=== PATIENT | female | born 2000 ===

== ENCOUNTER 2020-06-24 19:11 | Emergency (ER) | payer MEDICAID ==
[~2020-06-24] VITALS: Ht 157.5 cm; Wt 58.3 kg
[2020-06-24 19:20] VITALS: BP 115/78
--- NOTE | 2020-06-24 19:43 | NUR ---
VB SINCE LAST NIGHT, "ITS A LITTLE MORE THEN SPOTTING", FIRST , HAS NOT BEEN SEEN YET FOR BY PCP. SMALL CLOT THIS AM. LAST MSP 04/12/21, 10 WEEKS ALONG. ACHES IN BELLY AND LEFT LEG ACHE SINCE TODAY. NO PAIN WITH VOIDING. SO AT BEDSIDE. Addendum: 06/24/20 at 2011 by URI VB SINCE LAST NIGHT, "ITS A LITTLE MORE THEN SPOTTING", FIRST , HAS NOT BEEN SEEN YET FOR BY PCP. SMALL CLOT THIS AM. LAST MSP 04/12/20, 10 WEEKS ALONG. ACHES IN BELLY AND LEFT LEG ACHE SINCE TODAY. NO PAIN WITH VOIDING. SO AT BEDSIDE.
--- NOTE | 2020-06-24 20:10 | NUR ---
PT TO IMAGING
[2020-06-24 20:44] LABS: BASOPHILS % (AUTO) 1 % (0-1); EOSINOPHILS % (AUTO) 1 % (1-7); LYMPHOCYTES % (AUTO) 34 % (22-44); MEAN CORPUSCULAR HEMOGLOBIN 27.1 pg (27.0-34.8); MEAN CORPUSCULAR HGB CONC 33.5 g/dL (32.4-35.8); MEAN PLATELET VOLUME 7.9 fL (7.4-10.4); MONOCYTES % (AUTO) 9 % (2-9); NEUTROPHILS % (AUTO) 55 % (42-75); PLATELET COUNT 258 x10^3/uL (130-400); RED BLOOD COUNT 4.79 x10^6/uL (3.82-5.3); RED CELL DISTRIBUTION WIDTH 15.4 % (9.6-15.2)
[2020-06-24 20:47] LABS: MD NO
== END 2020-06-24 21:45 | disposition home or self-care (01) ==
LOC: ED 21:02
DX: O46.91 Antepartum hemorrhage, unspecified, first trimester (principal); Z3A.01 Less than 8 weeks gestation of pregnancy
CPT/HCPCS: 36415; 76801; 84702; 85025; 86901; 99284

== ENCOUNTER 2020-12-11 20:48 | Emergency (ER) | payer MEDICAID ==
[~2020-12-11] VITALS: Ht 157.5 cm; Wt 72.2 kg
[2020-12-11] MEDS ORDERED: SODIUM CHLORIDE FLUSH 10ML SYR IVF ONE (21:30)
--- NOTE | 2020-12-11 21:47 | NUR ---
PT PRESENTS WITH C/O PAIN IN BETWEEN SHOULDER BLADES X3-4 DAYS, 32 WEEKS . PIV PLACED, LABS DRAWN. CALL TO L&D FOR FHT.
[2020-12-11 21:53] LABS: BASOPHILS % (AUTO) 1 % (0-1); EOSINOPHILS % (AUTO) 1 % (1-7); LYMPHOCYTES % (AUTO) 24 % (22-44); MEAN CORPUSCULAR HEMOGLOBIN 21.2 pg (27.0-34.8); MEAN CORPUSCULAR HGB CONC 31.6 g/dL (32.4-35.8); MEAN PLATELET VOLUME 8.1 fL (7.4-10.4); MONOCYTES % (AUTO) 8 % (2-9); NEUTROPHILS % (AUTO) 67 % (42-75); PLATELET COUNT 267 x10^3/uL (130-400); RED BLOOD COUNT 4.71 x10^6/uL (3.82-5.3)
--- NOTE | 2020-12-11 21:58 | NUR ---
L&D RN AT BEDSIDE FOR FHT.
[2020-12-11 22:00] LABS: ALBUMIN 2.2 g/dL (3.4-5.0); ANION GAP 8 mmol/L (5-15); CALCIUM 9.5 mg/dL (8.5-10.1); CHLORIDE 112 mmol/L (98-107)
[2020-12-11 22:04] LABS: TROPONIN I < 0.015 ng/mL (0.000-0.045)
[2020-12-11 22:09] LABS: ANISOCYTOSIS 2+; MICROCYTOSIS 2+
[2020-12-11 22:10] LABS: <PLATELET ESTIMATE> ADEQUATE; LARGE PLATELETS 1+; OVALOCYTES 1+; POLYCHROMASIA 1+
[2020-12-11 22:38] VITALS: BP 145/85
== END 2020-12-11 22:48 | disposition home or self-care (01) ==
LOC: ED 21:46
DX: O26.893 Other specified pregnancy related conditions, third trimester (principal); K21.9 Gastro-esophageal reflux disease without esophagitis; R07.2 Precordial pain; R94.31 Abnormal electrocardiogram [ECG] [EKG]; Z3A.29 29 weeks gestation of pregnancy
CPT/HCPCS: 36415; 71045; 80048; 82040; 84484; 85025; 85379; 93005; 99285

== ENCOUNTER 2020-12-16 17:38 | Inpatient (IN) | payer MEDICAID ==
[~2020-12-16] VITALS: Ht 157.5 cm; Wt 72.2 kg
[2020-12-16] MEDS ORDERED: KETOROLAC 30 MG/1 ML ONE (17:41)
[2020-12-16] MEDS ORDERED: DEXAMETHASONE 4 MG/ML, 1ML ONE (17:41)
[2020-12-16] MEDS ORDERED: FENTANYL PF 100 MCG/2ML ONE (17:41)
[2020-12-16] MEDS ORDERED: SODIUM CHLORIDE 0.9% PF 10ML ONE (17:41)
[2020-12-16] MEDS ORDERED: ONDANSETRON 2MG/ML, 2ML ONE (17:41)
[2020-12-16] MEDS ORDERED: CEFAZOLIN 1,000 MG ONE (17:41)
[2020-12-16] MEDS ORDERED: MIDAZOLAM 1 MG/ML, 2ML ONE (17:58)
[2020-12-16] MEDS ORDERED: LACTATED RINGERS 1,000 ML IVBOLUS ONE (18:30)
[2020-12-16] MEDS ORDERED: HYDROmorphone 2 MG/ML, 1ML ONE (18:38)
[2020-12-16] MEDS: HYDROmorphone 2 MG/ML, 1ML IVPush PRN ×2 (18:40→18:48)
[2020-12-16 18:50] LABS: BASOPHILS % (AUTO) 0 % (0-1); EOSINOPHILS % (AUTO) 0 % (1-7); LYMPHOCYTES % (AUTO) 11 % (22-44); MEAN CORPUSCULAR HEMOGLOBIN 21.1 pg (27.0-34.8); MEAN CORPUSCULAR HGB CONC 30.9 g/dL (32.4-35.8); MEAN PLATELET VOLUME 8.5 fL (7.4-10.4); MONOCYTES % (AUTO) 5 % (2-9); NEUTROPHILS % (AUTO) 84 % (42-75); PLATELET COUNT 311 x10^3/uL (130-400); RED CELL DISTRIBUTION WIDTH 20.2 % (9.6-15.2)
[2020-12-16] MEDS ORDERED: MAGNESIUM SULF. PMX 20GM/500ML 500 ML IV ONE (18:52)
[2020-12-16 18:54] LABS: MICROSCOPIC INDICATED
[2020-12-16 18:59] LABS: AMPHETAMINE SCREEN, URINE Negative (Negative); BARBITURATE SCREEN, URINE Negative (Negative); BENZODIAZEPINE SCREEN, URINE Negative (Negative); CANNABINOID SCREEN, URINE Negative (Negative); COCAINE SCREEN, URINE Negative (Negative); METHADONE SCREEN, URINE Negative (Negative); OPIATE SCREEN, URINE Negative (Negative)
[2020-12-16] MEDS ORDERED: OXYTOCIN 30U/ 0.9% NaCL 500ML 500 ML ONE (18:59)
[2020-12-16] MEDS ORDERED: PLEASE ENTER HEIGHT AND WEIGHT MC SCH (19:00)
[2020-12-16] MEDS ORDERED: MAGNESIUM SULFATE PMX 2GM/50ML 50 ML IV ONE (19:00)
[2020-12-16] MEDS ORDERED: MAGNESIUM SULFATE PMX 4GM/100M 100 ML IV ONE (19:00)
[2020-12-16 19:02] LABS: ALBUMIN 1.7 g/dL (3.4-5.0); ANION GAP 13 mmol/L (5-15); CALCIUM 8.6 mg/dL (8.5-10.1); CHLORIDE 109 mmol/L (98-107)
[2020-12-16 19:05] LABS: ALANINE AMINOTRANSFERASE 22 U/L (12-78); ALKALINE PHOSPHATASE 116 U/L (45-117); BILIRUBIN,TOTAL 0.3 mg/dL (0.2-1.0); TOTAL PROTEIN 5.3 g/dL (6.4-8.2)
[2020-12-16 19:08] LABS: PROTEIN/CREATININE RATIO,URINE 34097 (0-200); TOTAL PROTEIN,URINE RANDOM 1057 mg/dL (0-12)
[2020-12-16 19:14] LABS: BILIRUBIN, DIRECT < 0.1 mg/dL (0.1-0.2)
[2020-12-16] MEDS ORDERED: LABETALOL 5MG/ML 40ML VIAL IV PRN (19:30)
[2020-12-16] MEDS ORDERED: HYDROmorphone 2 MG/ML, 1ML IV PRN (19:30)
[2020-12-16] MEDS ORDERED: ONDANSETRON 2MG/ML, 2ML IV PRN (19:30)
[2020-12-16] MEDS ORDERED: METOCLOPRAMIDE 5 MG/ML, 2ML IVPush PRN (19:30)
[2020-12-16] MEDS ORDERED: MEPERIDINE/PF 25MG/0.5ML IV PRN (19:30)
[2020-12-16] MEDS ORDERED: MIDAZOLAM 1 MG/ML, 5ML IV PRN (19:30)
[2020-12-16] MEDS ORDERED: FENTANYL PF 100 MCG/2ML IVPush PRN (19:30)
[2020-12-16] MEDS ORDERED: PREN1TAB60 PO (19:36)
[2020-12-16] MEDS ORDERED: PROM25AM6 PO (19:38)
[2020-12-16] MEDS ORDERED: CEFAZOLIN 2,000 MG in SODIUM CHLORIDE 0.9% 50 ML IV SCH ×2 (20:30→23:00)
[2020-12-16] MEDS ORDERED: OXYTOCIN 30U/ 0.9% NaCL 500ML 500 ML IV SCH ×2 (21:00)
[2020-12-16] MEDS ORDERED: MISOPROSTOL 200 MCG TABLET PR PRN (21:00)
[2020-12-16] MEDS: OXYcodone 5 MG/5 ML ORAL.SOL UDC PO PRN (21:14)
[2020-12-16] MEDS ORDERED: CARBOPROST TROMETHAMINE 250 MCG/ML, 1ML IM ONE ×2 (22:20→23:00)
[2020-12-16] MEDS: CEFAZOLIN PMX 2GM/50ML 50 ML IVPB SCH (23:08)
[2020-12-17] MEDS ORDERED: MAGNESIUM SULF. PMX 20GM/500ML 500 ML IV PRN (00:30)
[2020-12-17] MEDS ORDERED: MAGNESIUM SULF. PMX 20GM/500ML 500 ML IV ONE (00:32)
[2020-12-17] MEDS: OXYcodone 5 MG/5 ML ORAL.SOL UDC PO PRN ×4 (06:09→21:25)
[2020-12-17] MEDS: CEFAZOLIN PMX 2GM/50ML 50 ML IVPB SCH ×3 (07:15→23:17)
[2020-12-17 07:18] VITALS: BP 133/82
[2020-12-17] MEDS ORDERED: LACTATED RINGERS 1,000 ML IV SCH ×2 (07:30→13:30)
[2020-12-17 10:32] LABS: BASOPHILS % (AUTO) 0 % (0-1); EOSINOPHILS % (AUTO) 0 % (1-7); LYMPHOCYTES % (AUTO) 14 % (22-44); MEAN CORPUSCULAR HGB CONC 31.1 g/dL (32.4-35.8); MEAN PLATELET VOLUME 8.1 fL (7.4-10.4); MONOCYTES % (AUTO) 8 % (2-9); NEUTROPHILS % (AUTO) 79 % (42-75); PLATELET COUNT 268 x10^3/uL (130-400); RED BLOOD COUNT 3.52 x10^6/uL (3.82-5.3); RED CELL DISTRIBUTION WIDTH 19.8 % (9.6-15.2)
[2020-12-17 10:46] LABS: ALANINE AMINOTRANSFERASE 21 U/L (12-78); ALBUMIN 1.6 g/dL (3.4-5.0); ANION GAP 11 mmol/L (5-15); CALCIUM 7.8 mg/dL (8.5-10.1); CHLORIDE 105 mmol/L (98-107); CREATININE 0.75 mg/dL (0.55-1.02)
[2020-12-17 10:48] LABS: ALKALINE PHOSPHATASE 94 U/L (45-117); BILIRUBIN,TOTAL 0.2 mg/dL (0.2-1.0); TOTAL PROTEIN 4.8 g/dL (6.4-8.2)
[2020-12-17] MEDS ORDERED: BUTALB/APAP/CAFFEINE 50MG/325MG/40MG ONE (12:56)
[2020-12-17] MEDS ORDERED: SIMETHICONE 80 MG CHEW TAB ONE (12:59)
[2020-12-17] MEDS ORDERED: BUTALB/APAP/CAFFEINE 50MG/325MG/40MG PO PRN (13:00)
[2020-12-17] MEDS ORDERED: DOCUSATE 100 MG CAPSULE PO PRN (13:30)
[2020-12-17] MEDS ORDERED: SIMETHICONE 80 MG CHEW TAB PO PRN (13:30)
[2020-12-17] MEDS ORDERED: ACETAMINOPHEN 325 MG TABLET ONE (20:06)
[2020-12-17] MEDS: ACETAMINOPHEN 325 MG TABLET PO PRN (20:17)
[2020-12-18] MEDS: CEFAZOLIN PMX 2GM/50ML 50 ML IVPB SCH (07:10)
[2020-12-18] MEDS: ACETAMINOPHEN 325 MG TABLET PO PRN ×3 (07:10→19:57)
[2020-12-18] MEDS: PRENATAL VIT/IRON/FA 1 EACH TABLET PO SCH (09:00)
[2020-12-18 14:00] VITALS: BP 135/82
[2020-12-18 19:30] VITALS: BP 135/81
[2020-12-19] MEDS: ACETAMINOPHEN 325 MG TABLET PO PRN ×3 (00:02→10:45)
[2020-12-19 08:15] VITALS: BP 125/84
[2020-12-19] MEDS: PRENATAL VIT/IRON/FA 1 EACH TABLET PO SCH (10:45)
[2020-12-19] MEDS ORDERED: IBUPROFEN 800 MG TABLET ONE (15:17)
[2020-12-19 19:50] VITALS: BP 138/80
[2020-12-19] MEDS: IBUPROFEN 200 MG TABLET PO PRN ×3 (20:04→22:01)
[2020-12-20 04:00] VITALS: BP 129/88
[2020-12-20] MEDS: ACETAMINOPHEN 325 MG TABLET PO PRN (04:16)
[2020-12-20] MEDS ORDERED: IBUPROFEN 800 MG TABLET ONE (07:39)
[2020-12-20] MEDS: IBUPROFEN 800 MG TABLET PO PRN ×3 (07:42→15:19)
[2020-12-20] MEDS: PRENATAL VIT/IRON/FA 1 EACH TABLET PO SCH (07:42)
[2020-12-20 07:50] VITALS: BP 120/75
[2020-12-20 14:00] VITALS: BP 138/90
== END 2020-12-20 15:30 | disposition home or self-care (01) | DRG 806 ==
LOC: LDIP 17:38 → 2NE 20:42 → 2NW 12-18 11:30
PROVIDERS: ADMIT Student in an Organized Health Care Education/Training Program; ATTEND Obstetrics & Gynecology
PROC: 10E0XZZ Delivery of Products of Conception, External Approach (ICD-10-PCS; principal; 2020-12-16)
PROC: 3E033VJ Introduction of Other Hormone into Peripheral Vein, Percutaneous Approach (ICD-10-PCS; 2020-12-16)
DX: O60.14X0 Preterm labor third trimester with preterm delivery third trimester, not applicable or unspecified (principal); O99.354 Diseases of the nervous system complicating childbirth; Z37.0 Single live birth; O62.2 Other uterine inertia; O76 Abnormality in fetal heart rate and rhythm complicating labor and delivery; R09.02 Hypoxemia; R56.9 Unspecified convulsions; O99.52 Diseases of the respiratory system complicating childbirth; Z3A.32 32 weeks gestation of pregnancy; Z68.32 Body mass index [BMI] 32.0-32.9, adult; Z20.822 Contact with and (suspected) exposure to COVID-19
CPT/HCPCS: 36415; 80053; 80307; 81001; 82248; 82570; 83735; 84156; 84550; 85025; 86592; 86850; 86900; 87635; 88307; G0378; J0690; J1100; J1170; J1885; J2250; J2405; J3010; J3475; J7120